=== PATIENT | female | born 1980 | race Caucasian/White ===

== ENCOUNTER → 2023-04-28 | Outpatient (CLI) | payer OTHER ==
--- NOTE | 2023-04-29 18:36 | MM ---
Reason for Exam: Screening (asymptomatic). Baseline mammogram. Patient History: Menarche at age 12. First Full-Term at age 18. Patient used Hormonal Contraceptives for 20 years. Paternal aunt had breast cancer. Last menstrual period: 04/26/2023 Risk Values: Polly 5 year model risk: 0.6%. NCI Lifetime model risk: 7.1%. Prior Study Comparison: Patient's first Mammogram. No prior studies available for comparison. Tissue Density: The breasts are heterogeneously dense, which may obscure small masses. Findings: Analyzed By CAD. In the right breast, there is an medial asymmetric density for which further evaluation is recommended. In the left breast, located posteriorly and centrally, there is an asymmetric density on the CC view for which further evaluation is recommended. No suspicious microcalcification or other discrete abnormality is seen. Overall Assessment: Incomplete: need additional imaging evaluation, BI-RAD 0 Management: Special View Mammogram of both breasts. Diagnostic Breast Ultrasound of both breasts. Additional views right breast to include spot 3-D CC, 3-D CC rolled, and 3-D LM views. Additional views left breast to include spot 3-D CC, 3-D CC rolled, and 3-D lateral views. Targeted ultrasound of either breast if any persisting abnormality. [facility] will attempt to contact patient to return for supplemental views and ultrasound if indicated. Electronically signed and approved by: Joyce Lopez M.D. Radiologist
== END | disposition home or self-care (01) ==
LOC: RADMAMWWP 12:49
PROVIDERS: ATTEND Family Medicine
DX: Z12.31 Encounter for screening mammogram for malignant neoplasm of breast (principal); Z80.3 Family history of malignant neoplasm of breast
CPT/HCPCS: 77063; 77067

== ENCOUNTER → 2023-05-01 | Outpatient (CLI) | payer OTHER ==
--- NOTE | 2023-05-01 10:43 | MM ---
Reason for Exam: Additional evaluation requested from abnormal screening. Last screening mammogram was performed less than 1 month ago. Patient History: Menarche at age 12. First Full-Term at age 18. Premenopausal. Patient has history of breast feeding. Patient used Hormonal Contraceptives for 20 years. Paternal aunt had breast cancer. Last menstrual period: 04/27/2023 Risk Values: Polly 5 year model risk: 0.6%. NCI Lifetime model risk: 7.1%. Prior Study Comparison: 04/28/2023 Bilateral MG 3D screening mammo w/cad, [facility]. Tissue Density: The breasts are extremely dense, which lowers the sensitivity of mammography. Findings: Analyzed By CAD. Areas of abnormal density do not persist on spot compression imaging. Precautionary bilateral six-month follow-up mammography is recommended however. Overall Assessment: Probably benign, BI-RAD 3 Management: Diagnostic Mammogram of both breasts in 6 months. . Results were given to the patient verbally at the time of exam. Patient should continue monthly self-breast exams. A clinical breast exam by your physician is recommended on an annual basis. This exam should not preclude additional follow-up of suspicious palpable abnormalities. Note on Polly scores and lifetime risk: 1. A Polly score greater than 3% is considered moderate risk. If this is the case, consider specialist referral to assess eligibility for a risk reducing agent. 2. If overall lifetime risk for the development of breast cancer is 20% or higher, the patient may qualify for future screening with alternating mammogram and breast MRI. Electronically signed and approved by: Raul Munguia M.D. Radiologis
== END | disposition home or self-care (01) ==
LOC: RADMAMWWP 09:43
PROVIDERS: ATTEND Family Medicine
DX: R92.8 Other abnormal and inconclusive findings on diagnostic imaging of breast (principal); Z80.3 Family history of malignant neoplasm of breast
CPT/HCPCS: 77066; G0279; 77062

== ENCOUNTER → 2023-12-09 | Outpatient (CLI) | payer OTHER ==
--- NOTE | 2023-12-09 09:18 | MM ---
Reason for Exam: Follow-up at short interval from prior study. Last screening mammogram was performed 7 month(s) ago. Patient History: Menarche at age 12. First Full-Term at age 18. Premenopausal. Patient has history of breast feeding. Patient used Hormonal Contraceptives for 20 years. Paternal aunt had breast cancer. Last menstrual period: 11/10/2023 Risk Values: Polly 5 year model risk: 0.6%. NCI Lifetime model risk: 7.1%. Prior Study Comparison: 04/28/2023 Bilateral MG 3D screening mammo w/cad, [facility]. 05/01/2023 Bilateral MG 3D work up w/cad [place], [facility]. Tissue Density: The breasts are heterogeneously dense, which may obscure small masses. Findings: Analyzed By CAD. No new suspicious masses, calcifications or distortions. Overall Assessment: Negative, BI-RAD 1 Management: Screening Mammogram of both breasts in 1 year. Results were given to the patient verbally at the time of exam. Patient should continue monthly self-breast exams. A clinical breast exam by your physician is recommended on an annual basis. This exam should not preclude additional follow-up of suspicious palpable abnormalities. Note on Polly scores and lifetime risk: 1. A Polly score greater than 3% is considered moderate risk. If this is the case, consider specialist referral to assess eligibility for a risk reducing agent. 2. If overall lifetime risk for the development of breast cancer is 20% or higher, the patient may qualify for future screening with alternating mammogram and breast MRI. [facility], , 12/09/2023 9:16 AM. Electronically signed and approved by: Dylon Mcgill DO
== END | disposition home or self-care (01) ==
LOC: RADMAMWWP 08:44
PROVIDERS: ATTEND Family Medicine
CPT/HCPCS: 77062; 77066